=== PATIENT | male | born 1990 | race Caucasian/White ===

== ENCOUNTER 2018-03-18 02:37 | Emergency (ER) | payer SELFPAY ==
[~2018-03-18] VITALS: Ht 165.1 cm; Wt 61.2 kg
--- NOTE | 2018-03-18 02:37 | NUR ---
Patient BIB [facility] for pre-booking medical screening exam, transferred to chair E. RN evaluating patient.
[2018-03-18 02:40] VITALS: BP 159/61
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
--- NOTE | 2018-03-18 02:57 | NUR ---
Dr. Swift evaluating patient.
[2018-03-18] MEDS ORDERED: BACITRACIN OINT 500 UNITS/GM PKT TP ONE (03:40)
[2018-03-18] MEDS ORDERED: CLINDAMYCIN 150 MG CAP PO ONE (03:45)
[2018-03-18] MEDS ORDERED: IBUPROFEN 800 MG TAB PO ONE (03:45)
[2018-03-18] MEDS ORDERED: IBUPROFEN 400 MG TAB ONE (03:55)
--- NOTE | 2018-03-18 04:08 | NUR ---
Patient discharged with v/s stable. Written and verbal after care instructions given and explained. Patient alert, oriented and verbalized understanding of instructions. [facility] [employer] with in custody. All questions addressed prior to discharge. ID band removed. Patient advised to follow up with [facility]D. Rx of CLEOCIN, MOTRIN given. Patient educated on indication of medication including possible reaction and side effects. Opportunity to ask questions provided and answered.
[2018-03-18 04:09] VITALS: BP 118/75
== END 2018-03-18 04:08 ==
LOC: MED 02:37
DX: S50.312A Abrasion of left elbow, initial encounter (principal); S40.212A Abrasion of left shoulder, initial encounter; R03.0 Elevated blood-pressure reading, without diagnosis of hypertension; Z02.89 Encounter for other administrative examinations; V49.9XXA Car occupant (driver) (passenger) injured in unspecified traffic accident, initial encounter; Y93.89 Activity, other specified; Y92.89 Other specified places as the place of occurrence of the external cause; Y99.8 Other external cause status
CPT/HCPCS: 73080; 90471; 90715; 99284